=== PATIENT | female | born 1980 | race Asian ===

== ENCOUNTER 2024-07-19 08:50 | Day surgery (SDC) | payer BC, SELFPAY ==
[2024-07-18 10:06] VITALS: BMI 28.7
--- NOTE | 2024-07-18 10:20 | EKG_ITS ---
[facility] Test Date: 2024-07-18 Pat Name: DANAE SEE Department: Room: - Gender: Female Process Manufacturing Engineer: AGUILAR : 1980 Requested By: Teofilo Pedraza Order Number: [id number] Reading MD: Teofilo Pedraza Measurements Intervals [place] Rate: 77 P: 36 MN: 169 QRS: 35 QRSD: 108 T: 34 QT: 374 QTc: 423 Interpretive Statements SINUS RHYTHM POSSIBLE ANTERIOR MYOCARDIAL INFARCTION , OF INDETERMINATE AGE No previous ECG available for comparison /[id number]
[2024-07-18 11:39] LABS: Basophils # (Auto) 0.1 Thou/mm3 (0.0-0.2); Basophils % (Auto) 1 % (0-2.5); Eosinophils # (Auto) 0.2 Thou/mm3 (0.0-0.5); Eosinophils % (Auto) 2 % (0-10); Hematocrit 42.1 % (36.0-46.0); Hemoglobin 13.7 g/dL (12.0-16.0); Immature Granulocytes % (Auto) 0 % (0-0); Immature Granulocytes Auto 0.02 Thou/mm3 (0.00-0.00); Lymphocytes # (Auto) 3.1 Thou/mm3 (1.0-4.8); Lymphocytes % (Auto) 35 % (10-50); Mean Corpuscular HGB Conc 32.5 g/dl (31.0-37.0); Mean Corpuscular Hemoglobin 26.3 pg (25.0-35.0); Mean Corpuscular Volume 81 fL (80-100); Monocytes # (Auto) 0.4 Thou/mm3 (0.0-0.8); Monocytes % (Auto) 5 % (0-12); Neutrophils % (Auto) 58 % (37-80); Nucleated Red Blood Cell % 0 /100 WBC (0); Platelet Count 311 Thou/mm3 (140-440); RDW Standard Deviation 46.9 fL (36.4-46.3); Red Blood Count 5.21 Miln/mm3 (4.00-5.20); White Blood Count 8.7 Thou/mm3 (3.6-11.0)
[2024-07-18 11:52] LABS: Alanine Aminotransferase 13 U/L (10-49); Albumin, Serum 4.9 gm/dL (3.5-5.0); Alkaline Phosphatase 72 U/L (46-116); Anion Gap 4 (7-16); Aspartate Amino Transferase 16 U/L (0-34); BUN/Creatinine Ratio 9 Ratio (12-20); Bilirubin,Total 0.4 mg/dL (0.3-1.2); Blood Urea Nitrogen 9 mg/dL (9-23); Calcium 9.3 mg/dL (8.3-10.6); Calcium (Corrected) 9.3 mg/dL (8.5-10.1); Carbon Dioxide 27.8 mMol/L (20.0-31.0); Chloride 105 mMol/L (98-107); Estimated Creatinine Clearance 66.4 mL/min (>60); Globulin 2.5 gm/dL (2.3-3.5); Glucose 101 mg/dL (74-106); Osmolality,Calculated 272 (275-295); Potassium 3.7 mMol/L (3.4-5.1); Sodium 137 mMol/L (136-145); Total Protein 7.4 gm/dL (5.7-8.2); eGFR > 60 See Note
[2024-07-18 11:54] LABS: HCG,Qualitative Serum Negative
[2024-07-19] VITALS (10 sets, daily range): BP systolic 145–182; BP diastolic 95–121; PULSE 10–100; RESP 12–18; TEMP 36.4–37.2; O2SAT 95–100; BMI 28.5
--- NOTE | 2024-07-19 07:01 | ESHP_ITS ---
Documentation for date of: 07/19/24 [employer]OGEN [employer] O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 - HPI History of Present Illness History of present illness: Ms. OHAAR is a 43 year old female who presents for scheduled hysteroscopy with endometrial ablation due to lower prolonged longstanding abnormal uterine bleeding Meds Home Medications and Allergies Home Medications ?Medication ?Instructions ?Recorded ?Confirmed ?Type albuterol sulfate 90 mcg/actuation 1 puff inhalation QID PRN 07/18/24 07/18/24 History aerosol inhaler Shortness Of Breath Or Wheezing medroxyprogesterone 2.5 mg tablet 2.5 mg PO QDAY 07/18/24 07/18/24 History propranolol 20 mg tablet 20 mg PO DAILY 07/18/24 07/18/24 History Allergies Allergy/AdvReac Type Severity Reaction Status Date / Time No Known Allergies Allergy Verified 07/18/24 10:04 Exam - [employer]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 Constitutional Constitutional: no acute distress Routine HEENT Exam Head: Present normocephalic and atraumatic Eye: Present EOMI and PERRL ENT: Present mucous membranes moist Routine Neck Exam Neck: Present supple and trachea midline Routine Respiratory Exam Respiratory: Present chest non-tender, lungs clear, normal breath sounds and no resp distress Routine Cardiovascular Exam Cardiovascular: Present RRR Routine Abdominal Exam Abdominal: Present soft and normoactive bowel sounds Routine Extremities Exam Extremities: Present full ROM Routine Skin Exam Skin: Present intact and dry Routine Neurological Exam Neurological: Present alert, oriented X3 and CN II-XII intact Routine Psychiatric Exam Psychiatric: Present normal affect and normal thought process [employer]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 - Results Labs 07/18/24 10:23 07/18/24 10:23 Labs: Short CBC 07/18/24 Range/Units 10:23 WBC 8.7 (3.6-11.0) Thou/mm3 Hgb 13.7 (12.0-16.0) g/dL Hct 42.1 (36.0-46.0) % Plt Count 311 (140-440) Thou/mm3 BMP 07/18/24 10:23 Sodium 137 Potassium 3.7 Chloride 105 Carbon Dioxide 27.8 BUN 9 Creatinine 1.0 Glucose 101 Calcium 9.3 Liver Function 07/18/24 Range/Units 10:23 Total Bilirubin 0.4 (0.3-1.2) mg/dL AST 16 (0-34) U/L ALT 13 (10-49) U/L Alkaline Phosphatase 72 (46-116) U/L Albumin 4.9 (3.5-5.0) gm/dL Assessment and Plan Assessment and plan (1) Abnormal uterine bleeding: Status: Acute Assessment and plan: Place in ambulatory status for scheduled hysteroscopy with endometrial ablation Order sheets attached Quality Measures Quality Measures VTE prophylaxis
[2024-07-19] MEDS: MIDAZOLAM INJ 1 MG/ML VIAL 2 ML 2 MG IVP (10:09)
[2024-07-19] MEDS: RINGERS LACTATED 1000 ML 1,000 ML 20 ML IV (10:09)
--- NOTE | 2024-07-19 14:04 | ESOP_ITS ---
Operative Note - [employer] INST[employer] Procedure Date of procedure: 07/19/24 Procedure Performed: Hysteroscopy, removal of intrauterine device Dilatation and curettage Endometrial ablation Indication: Abnormal uterine bleeding, adenomyosis and leiomyoma unresponsive to medical treatment Anesthesia type: General Procedure description: Informed consent was obtained and the patient was taken to the operating room.? Identity was confirmed by double identifiers and she was placed on the operating table.? General anesthesia was administered and she was now positioned on Trevin stirrups in the dorsal lithotomy position.? The perineum was prepped in the usual sterile fashion and sterile drapes were applied.? A straight catheter was used to empty the bladder. A weighted speculum was placed in the posterior vaginal wall.? A right angle retractor was used to retract the anterior wall.? A single-tooth tenaculum was used to grasp the anterior lip of the cervix and the cervix was placed under traction.? The cervical length from the external to the internal loss was measured, and a uterine sound was used to measure the uterine length.? The cervix was now serially dilated using serial dilators up to 7 mm.? The hysteroscope was now connected to the BURLESQUICEOUS fluid management system and the system was primed.? The hysteroscope was introduced into the uterine cavity under direct visualization.? Upon entry the whole cavity was visualized including both the tubal ostia.? There was significant amount of sub mucous fibroids, sub mucous polyps and fluffy thickened endometrium in all parts of the uterus.? Mirena intrauterine device was noted in the lower uterine segment and this was removed under hysteroscopic visualization. The NovaSure device was introduced.? The NovaSure was deployed as per the inside technical sales representative's recommendations.? A cavity check was performed and passed.? The NovaSure was now activated.? The NovaSure completed the activation cycle and terminated spontaneously (please see the findings column below for uterine measurements and NovaSure activation and fluid counts). The NovaSure was now withdrawn.? The camera was reintroduced into the uterine cavity and adequate endometrial ablation was noted in all parts of the uterine cavity.? The hysteroscope and camera were removed.? The tenaculum was removed from the cervix.? The cervix was visualized and noted to be adequately hemostatic.? The speculum was removed from the vaginal canal.? The patient was now cleaned, undraped, taken out of lithotomy position, general anesthesia was reversed and she was not transferred to recovery room in stable and awake condition.? The patient tolerated the entire procedure well.? All instrument, sponge and lap counts were correct x2. Estimated blood loss (ml): 5 Findings: Intracavitary fibroids with gross distortion of uterine cavity NovaSure activation time 47 seconds Complications: none Surgical staff Operation Date: 07/19/24 11:15 <No data on this case meets the specified criteria> Diagnosis Discharge Diagnosis (1) Abnormal uterine bleeding: Status: Acute Problem List Completed Was Problem List Reviewed/Reconciled?: Yes
--- NOTE | 2024-07-19 14:25 | SUR.PHASEI ---
1425: Pt. AAOX4, vitals stable, breathing unlabored, no complaint of pain or nausea, peripad in place with scant amount of blood report received from Alexei BISWAS and Clarence HANNAH.
[2024-07-19] MEDS: hydrALAZINE INJ 20 MG/ML VIAL 10 MG IVP (14:51)
[2024-07-19] MEDS: HYDROmorphone INJ 2 MG/ML VIAL 0.4 MG IVP (15:06)
--- NOTE | 2024-07-19 15:26 | SUR.OPER ---
ENDOMETRIAL ABLATION UTERINE SOUND: 11CM CERVICAL LENGTH: 4CM CAVITY LENGTH: 6.5CM CAVITY WIDTH: 4.5 CM POWER SETTIN DURATION: 44 SECONDS
[2024-07-19] MEDS: ONDANSETRON INJ 2 MG/ML INJ 2 ML 4 MG IVP (15:30)
--- NOTE | 2024-07-19 15:45 | SUR.PHASEII ---
1545: Pt. AAOx4, vitals stable( pt. hypertensive but is close to baseline, Alexei BISWAS made aware and stated she is fine to go home), breathing unlabored, no complaint of pain or nausea, peripad in place with scant amount of blood, pt. tolerated sips of water well, pt. ambulated to wheelchair with steady gait and no assist, no complications. Gave discharge instructions to the pt. and her ride, both verbalized understanding and had no further questions. Pt. left with all personal belongings.
== END 2024-07-19 15:45 | disposition home or self-care (01) ==
PROVIDERS: PCP Family Medicine; Referring Provider Obstetrics & Gynecology; Visit Provider Obstetrics & Gynecology
PROC: 0U5B8ZZ Destruction of Endometrium, Via Natural or Artificial Opening Endoscopic (ICD-10-PCS; CPT 58563; principal; 2024-07-19 11:15)
DX: N85.00 Endometrial hyperplasia, unspecified (principal); Z01.810 Encounter for preprocedural cardiovascular examination; D25.0 Submucous leiomyoma of uterus; Z30.432 Encounter for removal of intrauterine contraceptive device
CPT/HCPCS: 58301; 58563; 36415; 80053; 84703; 85025; 86850; 86900; 86901; 93005; A4217; A4649; J0131; J0360; J2250; J2405; J2704; J3010; J3490; J7120; J1920